=== PATIENT | male | born 1980 | race Caucasian/White ===

== ENCOUNTER 2024-09-22 15:25 | Outpatient (CLI) | payer OTHER, SELFPAY ==
--- OUTSIDE RECORDS SUMMARY | 2024-09-22 15:28 | XMS_ITS | Referral Summary ---
Author Organization [facility] Address [address] [place] [address] Care Team Providers Care Doping Supervisor Name Role Phone No, Physician Primary Care Provider [phone] Allergies No known active allergies Medications No known medications Active Problems No known active problems Social History Tobacco Use Types Packs/Day Years Used Date Smoking Tobacco: Every Day Cigarettes Smokeless Tobacco: Never Personal Safety Answer Date Recorded Getting School Help Needed Not on file 06/21 Sex and Gender Information Value Date Recorded Sex Assigned at Not on file Legal Sex Male 2:06 PM CDT Gender Identity Not on file Sexual Orientation Not on file Last Filed Vital Signs Vital Sign Reading Time Taken Comments Blood Pressure 169/85 04/23/2023 8:51 AM CDT Pulse 132 04/23/2023 8:51 AM CDT Temperature 37.2 C (99 F) 04/23/2023 8:54 AM CDT Respiratory Rate 22 04/23/2023 8:51 AM CDT Oxygen Saturation 100% 04/23/2023 8:51 AM CDT Inhaled Oxygen Concentration - - Weight 81.6 kg (180 lb) 05/01/2017 3:28 PM CDT Height 188 cm (6' 2 ) 05/01/2017 3:28 PM CDT Body Mass Index 23.11 05/01/2017 3:28 PM CDT Plan of Treatment Not on file Procedures Procedure Name Priority Date/Time Associated Diagnosis Comments HEPATITIS C ANTIBODY STAT 10/11/2016 3:34 PM CDT from Last 3 Months or Most Recently Relevant to Health Maintenance Results * Hepatitis C antibody (10/11/2016 3:34 PM CDT) Hep C Ab Nonreactive Nonreactive [facility] Comment: Interpretive Data Positive results should be confirmed by a molecular method. If positive, a second separately collected sample should be submitted for Hepatitis C Virus (HCV) RNA Detection and Quantitation by Real-Time Reverse Industrial Service Technician-PCR (RT-PCR). Current interpretive data was last revised on 2016. Blood specimen (specimen) 10/11/2016 3:34 PM CDT 10/11/2016 4:08 PM CDT us Sunitha Seymour MD LAB MICROBIOLOGY - GENER AL ORDERABLES Edited Result - Final [facility] Department [place] [address] from Last 3 Months or Most Recently Relevant to Health Maintenance Insurance [facility] Care Teams Doping Supervisor Relationship Specialty Start Date End Date No, Physician PCP - General 12/28/16
--- OUTSIDE RECORDS SUMMARY | 2024-09-22 15:28 | XMS_ITS | Clinical Summary ---
Author Organization [facility] Address [address] [place] [address] Phone Care Team Providers Care Molecular Spectroscopist Name Role Phone López Munoz APRN, [place] Primary Care Provide r Medications SUBOXONE 4-1 MG FILM 01/24/2019 Active gabapentin (NEURONTIN) 600 MG Tablet 04/03/2019 Active hydrOXYzine (VISTARIL) 50 MG Capsule 04/17/2019 Active Buprenorphine HCl-Naloxone HCl 2-0.5 MG FILM 04/17/2019 Activ e vitamin D (CHOLECALCIFEROL ) 1000 UNIT Tablet Take 1,000 Units by mouth daily. Active buPROPion (WELLBUTRIN) 100 MG Tablet Take 100 mg by mouth 2 times daily. Active buPROPion (WELLBUTRIN) 150 MG XL tablet 04/03/2019 Active SUMAtriptan (IMITREX) 25 MG Tablet 03/27/2019 Active Family History Medical History Relation Name Comments Diabetes Father Hypertension Father Relation Name Status Comments Father Alive Mother Alive Social History Tobacco Use Types Packs/Day Years Used Date Smoking Tobacco: Every Day Cigarettes Smokeless Tobacco: Never Alcohol Use Standard Drinks/Week Comments Not Currently 0 (1 standard drink = 0.6 oz pur e alcohol) Sex and Gender Information Value Date Recorded Sex Assigned at Not on file Legal Sex Male 7:26 PM CDT Gender Identity Not on file Sexual Orientation Not on file Last Filed Vital Signs Vital Sign Reading Time Taken Comments Blood Pressure 140/80 04/21/2019 2:12 PM CDT Pulse 69 04/21/2019 2:12 PM CDT Temperature - - Respiratory Rate - - Oxygen Saturation 98% 04/21/2019 2:12 PM CDT Inhaled Oxygen Concentration - - Weight 73.5 kg (162 lb) 04/21/2019 2:12 PM CDT Height 185.4 cm (6' 1 ) 04/21/2019 2:12 PM CDT Body Mass Index 21.37 04/21/2019 2:12 PM CDT Plan of Treatment Health Maintenance Due Date Last Done Comments Hepatitis B Immunization (1 of 3 - 19+ 3-dose series) 2000 Influenza Immunization (#1) 2024 SARS-COV-2 Immunization (2023-25 season) 2024 Respiratory Syncytial Virus (RSV) Immunization (Adult) (1 - 1-dose 75+ series) 2056 DTaP/Tdap/Td Immunization Discontinued 11/21/2015 TdaP Immunization Completed 11/21/2015 Hepatitis C Virus (HCV) Screening Completed 019 Meningococcal Immunization (ACWY) Aged Out No longer eligible based on patient's age to complete this topic Pneumococcal Immunization Combined Aged Out No longer eligible b ased on patient's age to complete this topic Rotavirus Immunization Aged Out No lo nger eligible based on patient's age to complete this topic Procedures Procedure Name Priority Date/Time Associated Diagnosis Comments HEPATITIS PANEL ACUTE (AHP) Routine 04/21/2019 3:21 PM CDT Chronic hepatitis C without hepatic coma (HCC) from Last 3 Months or Most Recently Relevant to Health Maintenance Results * (ABNORMAL) HEPATITIS PANEL ACUTE (AHP) (04/21/2019 3:21 PM CDT) HEPATITIS A IGM ANTIBODY NON DETECTED NON DETECTED 04/21/2019 10:17 PM CDT [facility] Comment: IGM Antibodies to HAV not detected. Does not exclude early acute or recovered HAV infection. HEP B CORE AB (IGM) NON DETECTED NON DETECTED 04/21/2019 10:17 PM CDT [facility] Comment: IGM anti-HBC not detected. Does not exclude the possibility of exposure to or infection with HBV. HEPATITIS B SURFACE ANTIGEN NON DETECTED NON DETECTED 04/21/2019 10:17 PM CDT [facility] Comment: A nonreactive test result does not exclude the possibility of exposure to or infection with Hepatitis B virus. A nonreactive test result in individuals with prior exposure to hepatitis B may be due to antigen levels below the detection limit of this assay or lack of antigen reactivity to the antibodies in this assay. hepatitis C antibody 15.85(H) <1 S/CO 04/21/2019 10:17 PM CDT [facility] Comment: Signal/Cutoff ratio < 0.79 is Nondetected Signal/Cutoff ratio 0.80-0.99 is Grayzone Signal/Cutoff ratio > 0.99 is Detected Supplemental assays are recommended if signal/cutoff ratio is >/=1.00. Signal/cutoff ratio result >/= 5.00 is 97% predictive of positivity for recombinant immunoblot assay (RIBA) and will be reported to the [place] Department of Public Health as required. Result faxed to the ID Blood specimen (specimen) Venipuncture / Unknown 04/21/2019 3:21 PM CDT 04/21/2019 4:20 PM CDT us Hansa Adams MD HEMATOLOGY ORDERABLES F inal Result [facility] [address] [place] [address], from Last 3 Months or Most Recently Relevant to Health Maintenance Insurance MEDICAID [facility] [employer] Care Teams Molecular Spectroscopist Relationship Specialty Start Date End Date López Munoz, ELIGIBILITY SERVICES REPRESENTATIVE, BURNISHING MACHINE OPERATOR [address] [place] [address] PCP - General Advanced Practice Nurse 02/24/19
--- OUTSIDE RECORDS SUMMARY | 2024-09-22 15:28 | XMS_ITS | Clinical Summary ---
Author Organization [facility] Address [address] [place] [address] Care Team Providers Care Intermediate Designer Name Role Phone No, Physician Primary Care Provider [phone] Allergies No known active allergies Medications No [...] on file Sexual Orientation Not on file Obstetrics History Last Filed Vital Signs Vital Sign Reading [...] 05/01/2017 3:28 PM CDT Plan of Treatment Health Maintenance Due Date Last Done Comments Depression Screening 1981 Varicella Vaccines (1 of 2 - 13+ 2-dose series) 1994 Hepatitis B Screening 11/04/1999 Regular Well Visit/Exam 18-64 11/04/1999 Pneumococcal vaccine <65 (1 of 2 - PCV) 2000 Influenza Vaccine (#1) 2024 DTaP/Tdap/Td Vaccine (2 - Td or Tdap) 11/20/2025 11/21/2015 Hepatitis C Screening Completed 10/11/2016 HPV Vaccines Aged Out No longer eligi ble based on patient's age to complete this topic Procedures Procedure Name Priority Date/Time Associated Diagnosis Comments HEPATITIS C ANTIBODY STAT 10/11/2016 3:34 PM CDT from Last 3 Months or Most Recently Relevant to Health Maintenance Results * Hepatitis C antibody (10/11/2016 3:34 PM CDT) Hep C Ab Nonreactive Nonreactive [facility] Comment: Interpretive Data Positive results should be confirmed by a molecular method. If positive, a second separately collected sample should be submitted for Hepatitis C Virus (HCV) RNA Detection and Quantitation by Real-Time Reverse Automation And Control Engineer-PCR (RT-PCR). Current interpretive data was last revised on 2016. Blood specimen (specimen) 10/11/2016 3:34 PM CDT 10/11/2016 4:08 PM CDT Sunitha Seymour MD LAB MICROBIOLOGY - GENER AL ORDERABLES Edited Result - Final [facility] Department [place] [address] from Last 3 Months or Most Recently Relevant to Health Maintenance Insurance [facility] Care Teams Intermediate Designer Relationship Specialty Start Date End Date No, Physician PCP - General 12/28/16
--- OUTSIDE RECORDS SUMMARY | 2024-09-22 15:28 | XMS_ITS | Clinical Summary ---
Author Organization [facility] Address [address] [place] [address] Care Team Providers Care Bandmill Operator Name Role Phone Jonahtan Walden MD Primary Care Provider [phone] Source Comments [facility],non-owned Affiliates and Associated Physician Practices is amultiple site organization consisting of ambulatory clinics and hospital sitesin [place], [place], [place] and [place]. This disclosure is being madepursuant to the Care Everywhere program and may not contain all information available regarding this patient. Last updated 18.[facility] [employer] Social History Tobacco Use Types Packs/Day Years Used Date Smoking Tobacco: Never Assessed Sex and Gender Information Value Date Recorded Sex Assigned at Not on file Gender Identity Not on file Sexual Orientation Not on file Plan of Treatment Health Maintenance Due Date Last Done Comments LIPID TESTING 1981 HIV SCREENING 1996 HEPATITIS C SCREENING 10/30/1999 DTAP/TDAP/TD VACCINES (1 - Tdap) 2000 HEPATITIS B VACCINE (1 of 3 - 19+ 3-dose series) 2000 COVID-19 VACCINE ( - 2023-2 5 season) 2024 INFLUENZA VACCINE (#1) 2024 DEPRESSION SCREENING 07/05/2024 ZOSTER VACCINE (1 of 2) 11/04/2031 HIB VACCINE Aged Out No longer eligi ble based on patient's age to complete this topic HPV VACCINE Aged Out No longer eligi ble based on patient's age to complete this topic MENINGOCOCCAL (Group B) VACC INE SHARED DECISION-MAKING Aged Out No longer eligibl e based on patient's age to complete this topic MENINGOCOCCAL GROUPS A/C/Y/W VACCINE Aged Out No longer eligible b ased on patient's age to complete this topic PNEUMOCOCCAL VACCINE Aged Out No long er eligible based on patient's age to complete this topic Care Teams Bandmill Operator Relationship Specialty Start Date End Date Jonathan Walden MD [facility] [address] [address] PCP - General Psychiatry 08/08/19
[2024-09-22 16:17] LABS: Basophils Percent Auto 0.4 % (0.2-1.2); Eosinophils Absolute Auto 0.2 K/mm3 (0-0.3); Eosinophils Percent Auto 1.4 % (0-4.4); Hematocrit 44.1 % (42.0-52.0); Hemoglobin 14.1 g/dL (14.0-18.0); Immature Granulocyte Absolute 0.03 K/mm3 (0.00-0.031); Immature Granulocyte Percent A 0.3 % (0-0.5); Lymphocytes Absolute Auto 2.91 K/mm3 (0.9-3.2); Lymphocytes Percent Auto 27.7 % (18.3-44.2); Mean Corpuscular Volume 90.7 fl (80-100); Mean Platelet Volume 10.8 fl (7.4-10.4); Monocytes Absolute Auto 0.9 K/mm3 (0.1-0.6); Monocytes Percent Auto 8.2 % (2.6-8.5); Neutrophils Absolute Auto 6.5 K/mm3 (1.3-6.7); Platelet Count Result 279 k/mm3 (150-375); Red Blood Count 4.86 M/mm3 (4.6-6.20); Red Cell Distribution Width 12.7 % (11.5-14.5); White Blood Count 10.5 K/mm3 (4.5-10.0)
[2024-09-22 16:25] LABS: Alanine Aminotransferase 50 U/L (6-50); Albumin Level 4.9 g/dL (3.5-5.1); Alkaline Phosphatase 68 U/L (38-126); Anion Gap 12 mmol/L (4-12); Aspartate Amino Transferase 35 U/L (17-59); Bilirubin,Total 0.4 mg/dL (0.2-1.3); Blood Urea Nitrogen 17 mg/dL (9-20); Calcium 9.4 mg/dL (8.4-10.2); Carbon Dioxide 29 mmol/L (22-30); Chloride 99 mmol/L (98-107); Estimated Glomerular Filt Rate > 60; Glucose 102 mg/dL (65-110); Sodium 140 mmol/L (137-145)
[2024-09-22 16:54] LABS: Prothrombin Time 13.5 Seconds (11.1-14.7)
[2024-09-22 17:52] LABS: Hepatitis C Virus Antibody Reactive (Negative)
[2024-09-26 13:52] LABS: Hepatitis C RNA, Quant PCR 4840000 IU/mL (NOT DETECTED)
== END 2024-09-22 15:26 | disposition home or self-care (01) ==
PROVIDERS: PCP Internal Medicine; Visit Provider Nurse Practitioner Family
DX: B19.20 Unspecified viral hepatitis C without hepatic coma (principal)
CPT/HCPCS: 36415; 80048; 80076; 85025; 85610; 86803; 87522

== ENCOUNTER 2025-01-19 13:29 | Outpatient (CLI) | payer OTHER, SELFPAY ==
--- OUTSIDE RECORDS SUMMARY | 2025-01-19 13:32 | XMS_ITS ---
Author Organization Unknown Plan of Treatment Description Planned Activity Planned Timing [facility] is a provider organization who partners directly with Health Plans and provides integrated primary care, behavioral health, and social science instructor for an attributed population Letter encounter to patientTelephone encounter Dec 28, 2024Jul 2024 Patient Care team information Name Category Status Period Participants - - Proposed period not known -
--- OUTSIDE RECORDS SUMMARY | 2025-01-19 13:32 | XMS_ITS | Clinical Summary ---
Author Organization [facility] Address [address] [place] [place] [address] Care Team Providers Care Customer Response Representative Name Role Phone Jonathan Walden MD Primary Care Provider [phone] Source Comments [facility],non-owned Affiliates and Associated Physician Practices is amultiple site organization consisting of ambulatory clinics and hospital sitesin [place], [place], [place] and [place]. This disclosure is being madepursuant to the Care Everywhere program and may not contain all information available regarding this patient. Last updated 18.[facility] [employer] Social History Tobacco Use Types Packs/Day Years Used Date Smoking Tobacco: Never Assessed Sex and Gender Information Value Date Recorded Sex Assigned at Not on file Legal Sex Male 10:23 AM CDT Gender Identity Not on file Sexual Orientation Not on file Plan of Treatment Health Maintenance Due Date Last Done Comments LIPID TESTING 1981 HIV SCREENING 1996 HEPATITIS C SCREENING 10/30/1999 DTAP/TDAP/TD VACCINES (1 - Tdap) 2000 HEPATITIS B VACCINE (1 of 3 - 19+ 3-dose series) 2000 HPV VACCINE (1 - 3-dose SCDM series) 2008 COVID-19 VACCINE ( - 2023-2 5 season) 2024 DEPRESSION SCREENING 07/05/2024 INFLUENZA VACCINE (#1) 2025 ZOSTER VACCINE (1 of 2) 11/04/2031 HIB [...] on patient's age to complete this topic Insurance Care Teams Customer Response Representative Relationship Specialty Start Date End Date Jonathan Walden MD [facility] Psychiatric [place] [id number] [address] [address] PCP - General Psychiatry 08/08/19
--- OUTSIDE RECORDS SUMMARY | 2025-01-19 13:32 | XMS_ITS | Clinical Summary ---
Author Organization [facility] Address [address] [place] [address] Care Team Providers Care Metal Template Maker Name Role Phone No, Physician Primary Care Provider [phone] Allergies No known active allergies Medications No [...] 3:28 PM CDT Height 188 cm (6' 2) 05/01/2017 3:28 PM CDT Body Mass Index 23.11 05/01/2017 3:28 PM CDT Plan of Treatment Health Maintenance Due Date Last Done Comments Depression Screening 1981 Varicella Vaccines (1 of 2 - 13+ 2-dose series) 1994 Hepatitis B Screening 11/04/1999 Regular Well Visit/Exam 18-64 11/04/1999 Pneumococcal vaccine <65 (1 of 2 - PCV) 2000 Influenza Vaccine (Season Ended) 2025 DTaP/Tdap/Td Vaccine (2 - Td or Tdap) [...] Hep C Ab Nonreactive Nonreactive [facility] Comment: Interpretive Data Positive results should be confirmed by a molecular method. If positive, a second separately collected sample should be submitted for Hepatitis C Virus (HCV) RNA Detection and Quantitation by Real-Time Reverse Sow Farm Manager-PCR (RT-PCR). Current interpretive data was last revised on 2016. Blood specimen (specimen) 10/11/2016 3:34 PM CDT 10/11/2016 4:08 PM CDT Sunitha Seymour MD LAB MICROBIOLOGY - GENER AL ORDERABLES Edited Result - Final [facility] Department [place] [address] from Last 3 Months or Most Recently Relevant to Health Maintenance Insurance [facility] Care Teams Metal Template Maker Relationship Specialty Start Date End Date No, Physician PCP - General 12/28/16
--- OUTSIDE RECORDS SUMMARY | 2025-01-19 13:32 | XMS_ITS | Referral Summary ---
Author Organization [facility] Address [address] [place] [address] Care Team Providers Care Outdoor Emergency Care Technician Name Role Phone No, Physician Primary Care Provider [phone] Allergies No known active allergies Medications No [...] CDT) Hep C Ab Nonreactive Nonreactive [facility] Comment: Interpretive Data Positive results should be confirmed by a molecular method. If positive, a second separately collected sample should be submitted for Hepatitis C Virus (HCV) RNA Detection and Quantitation by Real-Time Reverse Crab Fisherman-PCR (RT-PCR). Current interpretive data was last revised on 2016. Blood specimen (specimen) 10/11/2016 3:34 PM CDT 10/11/2016 4:08 PM CDT Sunitha Seymour MD LAB MICROBIOLOGY - GENER AL ORDERABLES Edited Result - Final [facility] Department [place] [address] from Last 3 Months or Most Recently Relevant to Health Maintenance Insurance [facility] [id number] [place] [address] Care Teams Outdoor Emergency Care Technician Relationship Specialty Start Date End Date No, Physician PCP - General 12/28/16
--- OUTSIDE RECORDS SUMMARY | 2025-01-19 13:32 | XMS_ITS | Clinical Summary ---
Author Organization [facility] Address [address] [place] [address] Phone Care Team Providers Care Pulping Machine Operator Name Role Phone López Munoz APRN, [place] [...] 2:12 PM CDT Height 185.4 cm (6' 1) 04/21/2019 2:12 PM CDT Body Mass Index 21.37 04/21/2019 2:12 PM CDT Plan of Treatment Health Maintenance Due Date Last Done Comments Human Papillomavirus (HPV) Immunization (1 - Male 3-dose series) 1996 Hepatitis B Immunization (1 of 3 - 19+ 3-dose series) 2000 SARS-COV-2 Immunization ( - 2023-25 season) 2024 Influenza Immunization (#1) 2025 Respiratory Syncytial Virus (RSV) Immunization (Adult) (1 - 1-dose 75+ series) 2056 DTaP/Tdap/Td Immunization Discontinued 11/21/2015 TdaP Immunization Completed 11/21/2015 Hepatitis C Virus (HCV) Screening Completed 019 Meningococcal Immunization (ACWY) Aged Out No longer eligible based on patient's age to complete this topic Pneumococcal Immunization Combined Aged Out No longer eligible based on [...] DETECTED NON DETECTED 04/21/2019 10:17 PM CDT [facility] Comment: IGM Antibodies to HAV not detected. Does not exclude early acute or recovered HAV infection. HEP B CORE AB (IGM) NON DETECTED NON DETECTED 04/21/2019 10:17 PM CDT [facility] Comment: IGM anti-HBC not detected. Does not exclude the possibility of exposure to or infection with HBV. HEPATITIS B SURFACE ANTIGEN NON DETECTED NON DETECTED 04/21/2019 10:17 PM CDT [facility] Comment: A nonreactive test result does [...] 15.85(H) <1 S/CO 04/21/2019 10:17 PM CDT [facility] Comment: Signal/Cutoff ratio < 0.79 is Nondetected Signal/Cutoff ratio 0.80-0.99 is Grayzone Signal/Cutoff ratio > 0.99 is Detected Supplemental assays are recommended if signal/cutoff ratio is >/=1.00. Signal/cutoff ratio result >/= 5.00 is 97% predictive of positivity for recombinant immunoblot assay (RIBA) and will be reported to the [place] Department of Public Health as required. Result faxed to the [facility] Blood specimen (specimen) Venipuncture / Unknown 04/21/2019 3:21 PM CDT 04/21/2019 4:20 PM CDT us Hansa Adams MD HEMATOLOGY ORDERABLES F inal Result [facility] [address] [place] [address], from Last 3 Months or Most Recently Relevant to Health Maintenance Insurance MEDICAID [employer] Care Teams Pulping Machine Operator Relationship Specialty Start Date End Date López Munoz, INTERLOCKING INSTALLER, STAFF DEVELOPMENT MANAGER [address] [place] [address] PCP - General Advanced Practice Nurse 02/24/19
[2025-01-19 13:46] LABS: Hematocrit 44.1 % (42.0-52.0); Hemoglobin 14.6 g/dL (14.0-18.0); Mean Corpuscular HGB Conc 33.1 g/dl (32-36); Mean Corpuscular Hemoglobin 28.9 pg (26-34); Mean Corpuscular Volume 87.2 fl (80-100); Platelet Count Result 286 k/mm3 (150-375); Red Blood Count 5.06 M/mm3 (4.6-6.20); White Blood Count 8.8 K/mm3 (4.5-10.0)
[2025-01-19 14:05] LABS: INR 1.0; Prothrombin Time 13.3 Seconds (11.1-14.7)
[2025-01-19 14:17] LABS: Alanine Aminotransferase 16 U/L (6-50); Albumin Level 4.8 g/dL (3.5-5.1); Alkaline Phosphatase 69 U/L (38-126); Anion Gap 12 mmol/L (4-12); Aspartate Amino Transferase 29 U/L (17-59); Bilirubin,Total 0.5 mg/dL (0.2-1.3); Blood Urea Nitrogen 11 mg/dL (9-20); Calcium 9.8 mg/dL (8.4-10.2); Carbon Dioxide 28 mmol/L (22-30); Chloride 99 mmol/L (98-107); Estimated Glomerular Filt Rate > 60; Glucose 86 mg/dL (65-110); Potassium 3.7 mmol/L (3.4-5.0); Sodium 139 mmol/L (137-145); Total Protein 8.6 g/dL (6.3-8.2)
== END 2025-01-19 13:30 | disposition home or self-care (01) ==
LOC: ANHLAB 13:30
PROVIDERS: PCP Internal Medicine; Visit Provider Nurse Practitioner Family
DX: B18.2 Chronic viral hepatitis C (principal)
CPT/HCPCS: 36415; 80053; 82248; 85027; 85610; 86803

== ENCOUNTER 2025-02-09 08:36 | Outpatient (CLI) | payer OTHER, SELFPAY ==
--- OUTSIDE RECORDS SUMMARY | 2025-02-09 08:39 | XMS_ITS | Clinical Summary ---
Author Organization [facility] Address [address] [place] [address] Phone Care Team Providers Care Motion Picture Set Grip Name Role Phone López Munoz APRN, [place] [...] of 3 - 19+ 3-dose series) 2000 Human Papillomavirus (HPV) Immunization (1 - 3-dose SCDM series) 2008 SARS-COV-2 Immunization ( - 2023-25 season) 2024 [...] DETECTED NON DETECTED 04/21/2019 10:[address] [facility] Comment: IGM Antibodies to HAV not detected. Does not exclude early acute or recovered HAV infection. HEP B CORE AB (IGM) NON DETECTED NON DETECTED 04/21/2019 10:[address] [facility] Comment: IGM anti-HBC not detected. Does not exclude the possibility of exposure to or infection with HBV. HEPATITIS B SURFACE ANTIGEN NON DETECTED NON DETECTED 04/21/2019 10:[address] [facility] Comment: A nonreactive test result does not [...] 15.85(H) <1 S/CO 04/21/2019 10:[address] [facility] Comment: Signal/Cutoff ratio < 0.79 is Nondetected Signal/Cutoff ratio 0.80-0.99 is Grayzone Signal/Cutoff ratio > 0.99 is Detected Supplemental assays are recommended if signal/cutoff ratio is >/=1.00. Signal/cutoff ratio result >/= 5.00 is 97% predictive of positivity for recombinant immunoblot assay (RIBA) and will be reported to the [place] Department of Public Health as required. Result faxed to the [facility] Blood specimen (specimen) Venipuncture / Unknown 04/21/2019 3:21 PM CDT 04/21/2019 4:20 PM CDT us Hansa Adams MD HEMATOLOGY ORDERABLES F inal Result [facility] [address] [place] [address], from Last 3 Months or Most Recently Relevant to Health Maintenance Insurance MED[employer]ID [employer] Care Teams Motion Picture Set Grip Relationship Specialty Start Date End Date López Munoz, PEARL GLUE OPERATOR, INSPECTOR FLOOR [address] [place] [address] PCP - General Advanced Practice Nurse 02/24/19
--- OUTSIDE RECORDS SUMMARY | 2025-02-09 08:39 | XMS_ITS | Clinical Summary ---
Author Organization [facility] Address [address] [place] [address] Care Team Providers Care Care Support Representative Name Role Phone No, Physician Primary Care Provider [phone] Allergies No known active allergies Medications No [...] <65 (1 of 2 - PCV) 2000 HPV Vaccines (1 - 3-dose SCDM series) 2008 Influenza Vaccine (#1) 2025 DTaP/Tdap/Td Vaccine (2 - Td or Tdap) 11/20/2025 Hepatitis C Screening Completed 10/11/2016 Procedures Procedure Name Priority Date/Time Associated Diagnosis Comments HEPATITIS C ANTIBODY STAT 10/11/2016 3:34 PM CDT from Last 3 Months or Most Recently Relevant to Health Maintenance Results * Hepatitis C antibody (10/11/2016 3:34 PM CDT) Hep C Ab Nonreactive Nonreactive [facility] Comment: Interpretive Data Positive results should be confirmed by a molecular method. If positive, a second separately collected sample should be submitted for Hepatitis C Virus (HCV) RNA Detection and Quantitation by Real-Time Reverse Employee Placement Specialist-PCR (RT-PCR). Current interpretive data was last revised on 2016. Blood specimen (specimen) 10/11/2016 3:34 PM CDT 10/11/2016 4:08 PM CDT Sunitha Seymour MD LAB MICROBIOLOGY - GENER AL ORDERABLES Edited Result - Final [facility] One [facility] Department [place] [address] from Last 3 Months or Most Recently Relevant to Health Maintenance Insurance [facility] Care Teams Care Support Representative Relationship Specialty Start Date End Date No, Physician PCP - General 12/28/16
--- OUTSIDE RECORDS SUMMARY | 2025-02-09 08:39 | XMS_ITS | Clinical Summary ---
Author Organization [facility] Address [address] [place] [address] Care Team Providers Care Operator/Assistant Foreman Name Role Phone Jonathan Walden MD Primary Care Provider [phone] Source Comments [facility],non-owned Affiliates and Associated Physician Practices is amultiple site organization consisting of ambulatory clinics and hospital sitesin [place], [place], [place] and [place]. This disclosure is being madepursuant to the Care Everywhere program and may not contain all information available regarding this patient. Last updated 18.[facility] [email or web address] Social History Tobacco Use Types Packs/Day Years [...] to complete this topic Insurance Care Teams Operator/Assistant Foreman Relationship Specialty Start Date End Date Jonathan Walden MD [facility] Psychiatric [place] [phone] [address] [address] PCP - General Psychiatry 08/08/19
[2025-02-13 14:08] LABS: HCV RT-PCR, Qnt (NG) YES YES
== END 2025-02-09 08:37 | disposition home or self-care (01) ==
PROVIDERS: PCP Internal Medicine; Visit Provider Nurse Practitioner Family
DX: B18.2 Chronic viral hepatitis C (principal)
CPT/HCPCS: 86803; 87522